=== PATIENT | male | born 1965 | race American Indian/Alaskan Native ===

== ENCOUNTER 2018-04-11 21:46 | Emergency (ER) | payer SELFPAY ==
[2018-04-11] MEDS ORDERED: BOOSTRIX IM ONE (22:02)
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
[2018-04-11 22:47] LABS: Bilirubin,Urine NEG (Negative); Blood,Urine NEG (Negative); Color,Urine Straw (Yellow); Protein,Urine <15 mg/dL mg/dL (Negative); Urobilinogen,Urine < 2.0 mg/dL (<2.0)
[2018-04-11 22:47] LABS: Hematocrit 41.9 % (35.5-45.6); Hemoglobin 14.5 gm/dl (11.8-15.2); Mean Corpuscular HGB Conc 35 % (32-34); Mean Corpuscular Hemoglobin 29 pg (28-32); Mean Corpuscular Volume 85 fl (84-94); Platelet Count 177 K/mm3 (140-440); Red Blood Count 4.93 M/mm3 (3.65-5.03)
[2018-04-11 22:56] LABS: Amphetamine Screen,Urine PRESUMPTIVE NEGATIVE; Benzodiazepines Screen,Urine PRESUMPTIVE NEGATIVE; Cannabinoid Screen,Urine PRESUMPTIVE NEGATIVE; Methadone Screen,Urine PRESUMPTIVE NEGATIVE; Opiate Screen,Urine PRESUMPTIVE NEGATIVE
[2018-04-11 23:00] LABS: INR 0.86 (0.87-1.13)
[2018-04-11 23:01] LABS: Partial Thromboplastin Time 26.2 Sec. (24.2-36.6)
--- NOTE | 2018-04-11 23:06 | Cat Scan Report ---
FINAL REPORT PROCEDURE: CT CERVICAL SPINE WO CON TECHNIQUE: Computerized tomography of the cervical spine was performed from the skull base to T1 without contrast material. HISTORY: syncope with head injury. Patient intoxicated COMPARISON: No prior studies are available for comparison. FINDINGS: There is loss of cervical lordosis. Vertebral height is normal. C1-2: No significant abnormality. C2-3: No significant abnormality. C3-4: No significant abnormality. C4-5: No significant abnormality. C5-6: There is mild degree left neural foraminal stenosis secondary to uncovertebral degenerative changes.. C6-7: Mild degree left neural foraminal stenosis is noted secondary to uncovertebral degenerative changes.. C7-T1: No significant abnormality. Other: No additional findings. IMPRESSION: No acute fracture Mild degree cervical spondylosis Straightening of the cervical spine is most likely secondary to spasm or positioning..
[2018-04-11 23:08] LABS: Creatine Kinase MB 2.2 ng/mL (0.0-4.0)
[2018-04-11 23:11] LABS: Alanine Aminotransferase 54 units/L (7-56); Albumin 4.3 g/dL (3.9-5); BUN/Creatinine Ratio 16; Blood Urea Nitrogen 13 mg/dL (9-20); Calcium 9.4 mg/dL (8.4-10.2); Hemolysis Index 4
[2018-04-11 23:18] LABS: Free T4 (Free Thyroxine) 1.21 ng/dL (0.76-1.46)
[2018-04-11 23:23] LABS: Total Cells Counted 100
[2018-04-11 23:24] LABS: Giant Platelets Few; Large Platelets Few; Ovalocytes Few
[2018-04-11 23:25] LABS: Platelet Estimate Consistent w Auto
[2018-04-11 23:28] LABS: Cocaine Screen,Urine PRESUMPTIVE POSITIVE
--- NOTE | 2018-04-11 23:41 | XRay Report ---
FINAL REPORT PROCEDURE: XR SHOULDER 2+V LT TECHNIQUE: LEFT shoulder radiographs including AP views in internal and external rotation and abduction. CPT 56304 HISTORY: pain after fall COMPARISON: No prior studies are available for comparison. FINDINGS: Fracture (s) and/or Dislocation(s): None . Joint space(s): There is narrowing of the acromioclavicular joint space with mild degree osteophyte formation.. Soft tissues: Normal . Bone mineralization: Normal . Foreign bodies: None . IMPRESSION: Osteoarthritis acromioclavicular joint
--- NOTE | 2018-04-11 23:42 | XRay Report ---
FINAL REPORT PROCEDURE: XR ELBOW 2V LT TECHNIQUE: LEFT elbow radiographs, including AP and lateral views. HISTORY: pain after fall COMPARISON: No prior studies are available for comparison. FINDINGS: Fracture (s) and/or Dislocation(s): None . Alignment: Normal . Joint space(s): Normal . Soft tissues: Normal . Bone mineralization: Normal . Foreign bodies: None . IMPRESSION: Normal Examination
--- NOTE | 2018-04-12 01:15 | Cat Scan Report ---
FINAL REPORT PROCEDURE: CT HEAD/BRAIN WO CON TECHNIQUE: Computerized tomography of the head was performed without contrast material. HISTORY: syncope, headache COMPARISON: No prior studies are available for comparison. FINDINGS: Skull and scalp: Normal. Paranasal sinuses: Normal. Ventricles and subarachnoid spaces: Normal. Cerebrum: No evidence of hemorrhage, acute infarction or mass . Cerebellum and brainstem: No evidence of hemorrhage, acute infarction or mass. Vasculature: Normal. Comments: None. IMPRESSION: There is no evidence of an acute intracranial process.
[2018-04-12] MEDS ORDERED: ASPIRIN PO ONE (01:21)
[2018-04-12 03:19] VITALS: BP 143/88
== END 2018-04-12 03:19 | disposition admitted as inpatient to this hospital (09) ==
LOC: ED 21:46
DX: R41.82 Altered mental status, unspecified (principal); R55 Syncope and collapse; M79.602 Pain in left arm; F10.129 Alcohol abuse with intoxication, unspecified; F14.10 Cocaine abuse, uncomplicated; I10 Essential (primary) hypertension; F17.200 Nicotine dependence, unspecified, uncomplicated; Z86.19 Personal history of other infectious and parasitic diseases
CPT/HCPCS: 36415; 70450; 72125; 73030; 73070; 80053; 80307; 81001; 82140; 82550; 82553; 84439; 84443; 84484; 85007; 85025; 85379; 85610; 85730; 90471; 90715; 93005; 93010; 99285; G0480; 80320

== ENCOUNTER 2018-12-08 08:17 | Day surgery (SDC) | payer OTHER ==
[~2018-12-08 08:17] MED LIST: NACL 0.9% 1000 ML 1,000 ML IV SCH
[2018-12-08] MEDS ORDERED: DIPRIVAN 10 MG/ML IV ONE (08:19)
--- NOTE | 2018-12-08 09:48 | Short Stay Summary ---
Short Stay Documentation Date of service: 12/08/18 Narrative H&P: Mr Segovia is a 53 yo AAM with h/o advanced fibrosis/cirrhosis, hepatitis c and alcohol abuse who presents for egd 2/2 varices screening. no prior egd or h/o upper gi bleeding. denies new gi complaints at this time. - History Past Medical History: other (see note in chart; no changes) Past Surgical History: Other Social history: alcohol abuse - Allergies and Medications Current Medications: Allergies No Known Allergies Allergy (Verified 04/11/18 22:06) Home Medications Medication Instructions Recorded Confirmed Last Taken Type Lisinopril 10 mg PO DAILY 12/07/18 12/07/18 12/07/18 History Active Medications Sodium Chloride (Nacl 0.9% 1000 Ml) 1,000 mls @ 50 mls/hr IV DIRECT YOSVANY Last Admin: 12/08/18 08:51 Dose: 50 mls/hr Documented by: - Physical exam General appearance: no acute distress Heart: Regular rate, Normal S1, Normal S2 Gastrointestinal: normal Extremities: No edema - Brief post op/procedure progress note Date of procedure: 12/08/18 Pre-op diagnosis: cirrhosis Post-op diagnosis: same (grade I esophageal varices) Procedure: EGD Anesthesia: MAC Findings: small, grade 1, esophageal varices in lower esophagus otherwise unremarkable upper endoscopy Surgeon: JORGE MEREDITH Estimated blood loss: none Pathology: none Condition: stable - Disposition Condition at discharge: Good Disposition: DC-01 TO HOME OR SELFCARE Short Stay Discharge Plan Follow up with: STU ROBERT MD [Primary Care Provider] - 7 Days
--- NOTE | 2018-12-08 09:50 | Operative Report ---
Operative Report Operative Report: Esophagogastroduodenoscopy Procedure Note Date of procedure: 12/08/2018 Endoscopist: Moustapha Linton Pre-op diagnosis: Cirrhosis, evaluate for varices Post-op diagnosis: Grade I esophageal varices Anesthesia: MAC Complications: No immediate complications Estimated blood loss: None Procedure: After consent was obtained, the patient was placed in the left lateral decubitus position. The fujinon endoscope was inserted into the patient's mouth under direct vision, and advanced into the 2nd portion of the duodenum without difficulty. The patient tolerated the procedure well. The views of the mucosa were good. Patient's vital signs were monitored continuously throughout the procedure. Findings: There were two to three columns of grade I varices in the lower third of the esophagus. There were no high risk bleeding stigmata. The stomach appeared normal. The duodenum appeared normal. Impression: 1. Grade I esophageal varices without high risk bleeding stigmata Recommendations: -start non-selective beta missy as outpatient based on vital signs -alcohol cessation -follow-up in GI clinic as previously scheduled
[2018-12-08 10:31] VITALS: BP 152/96
== END 2018-12-08 08:18 | disposition home or self-care (01) ==
LOC: GIO 08:17
PROVIDERS: ATTEND Internal Medicine Gastroenterology
DX: I85.00 Esophageal varices without bleeding (principal); K74.69 Other cirrhosis of liver; F17.210 Nicotine dependence, cigarettes, uncomplicated; I10 Essential (primary) hypertension; Z79.899 Other long term (current) drug therapy
CPT/HCPCS: 43235; 82962; J2704; J7030

== ENCOUNTER 2019-01-19 08:13 | Day surgery (SDC) | payer OTHER ==
--- NOTE | 2019-01-19 07:25 | Anesthesia Consultation ---
Anesthesia Consult and Med Hx Date of service: 01/19/19 - Airway Anesthetic Teeth Evaluation: Good ROM Head & Neck: Adequate Mental/Hyoid Distance: Adequate Mallampati Class: Class II Intubation Access Assessment: Probably Good - Pulmonary Exam CTA: Yes - Cardiac Exam Cardiac Exam: RRR - Pre-Operative Health Status ASA Pre-Surgery Classification: ASA3 Proposed Anesthetic Plan: MAC - Cardiovascular System Hx Hypertension: Yes - Endocrine Hx Cirrhosis: Yes Hx Liver Disease: Yes (hepatitis C)
--- NOTE | 2019-01-19 07:26 | Anesthesia Day of Surgery ---
Anesthesia Day of Surgery - Day of Surgery Patient Examined: Yes Patient H&P Reviewed: Yes Patient is NPO: Yes Beta Blockers: No Cardiac Clearance: No Pulmonary Clearance: No
== END 2019-01-19 08:14 | disposition home or self-care (01) ==
LOC: GIO 08:13
PROVIDERS: ATTEND Internal Medicine Gastroenterology
DX: Z12.11 Encounter for screening for malignant neoplasm of colon (principal); I10 Essential (primary) hypertension; R10.11 Right upper quadrant pain; B18.2 Chronic viral hepatitis C; F17.210 Nicotine dependence, cigarettes, uncomplicated; K74.0 Hepatic fibrosis; Z53.8 Procedure and treatment not carried out for other reasons; Z79.899 Other long term (current) drug therapy